=== PATIENT | female | born 1980 | race American Indian/Alaskan Native ===

== ENCOUNTER 2016-11-02 17:13 | Emergency (ER) | payer MEDICAID ==
[2016-11-02 17:27] VITALS: BP 146/97
[2016-11-02] MEDS ORDERED: NORCO 5/325 PO ONE (21:02)
[2016-11-02] MEDS ORDERED: ZOFRAN ODT PO ONE (21:03)
[2016-11-02] MEDS ORDERED: FLEXERIL PO ONE (21:03)
--- NOTE | 2016-11-02 21:04 | Emergency Department Report ---
ED Back Pain/Injury HPI - General Chief Complaint: Back Pain/Injury Stated Complaint: SEVERE BACK PAIN Time Seen by Provider: 11/02/16 20:40 Source: patient, family Limitations: No Limitations - History of Present Illness Initial Comments: Patient here complaining of lower back pain that started in her left side and going across her back. Denies any injury. She said it started this morning while he was making coffee. Denies any urinary burning but report frequency and urgency. Denies any fever or chills or nausea or vomiting. MD Complaint: back pain -: This morning Similar Symptoms Previously: Yes Place: home Radiation: none Severity: severe Severity scale (0 -10): 10 Quality: aching Consistency: constant Improves With: none Worsens With: none Context: unknown Associated Symptoms: denies: confusion, weakness, chest pain, numbness, difficulty walking, cough, difficulty urinating, diaphoresis, incontinence, fever/chills, constipation, headaches, abdominal pain, loss of appetite, malaise , nausea/vomiting, rash, seizure, shortness of breath, syncope Treatments Prior to Arrival: NSAIDS - Related Data Previous Rx's Medication Instructions Recorded Last Taken Type Acetaminophen/Codeine [Tylenol #3] 1 tab PO Q8H PRN #12 tablet 11/02/16 Unknown Rx Nitrofurantoin Laurel/M-Cryst 100 mg PO Q12HR #14 capsule 11/02/16 Unknown Rx [Macrobid CAP] Allergies Allergy/AdvReac Type Severity Reaction Status Date / Time No Known Allergies Allergy Verified 11/30/14 10:43 ED Review of Systems ROS: Stated complaint: SEVERE BACK PAIN Other details as noted in HPI Comment: All other systems reviewed and negative Constitutional: denies: chills, fever Respiratory: no symptoms reported Cardiovascular: denies: chest pain, palpitations, edema, syncope Gastrointestinal: denies: abdominal pain, nausea, vomiting, diarrhea, constipation Genitourinary: urgency, frequency. denies: dysuria, hematuria, discharge Musculoskeletal: back pain. denies: arthralgia Skin: denies: rash Neurological: denies: headache, weakness, numbness, paresthesias, confusion, abnormal gait, vertigo ED Past Medical Hx - Past Medical History Previous Medical History?: No Hx Hypertension: No Hx Diabetes: No Hx Deep Vein Thrombosis: No Hx Renal Disease: No Hx Sickle Cell Disease: No Hx Seizures: No Hx Asthma: No Hx HIV: No - Surgical History Past Surgical History?: No - Family History Family history: no significant - Social History Smoking Status: Never Smoker Substance Use Type: None - Medications Home Medications: Home Medications Medication Instructions Recorded Confirmed Last Taken Type Acetaminophen/Codeine [Tylenol #3] 1 tab PO Q8H PRN #12 tablet 11/02/16 Unknown Rx Nitrofurantoin [place]/M-Cryst 100 mg PO Q12HR #14 capsule 11/02/16 Unknown Rx [Macrobid CAP] ED Physical Exam - General Limitations: No Limitations General appearance: alert, in no apparent distress - Head Head exam: Present: atraumatic, normocephalic, normal inspection - Eye Eye exam: Present: normal appearance, PERRL, EOMI. Absent: periorbital swelling , periorbital tenderness Pupils: Present: normal accommodation - ENT ENT exam: Present: normal exam, normal orophraynx, mucous membranes moist, TM's normal bilaterally, normal external ear exam - Neck Neck exam: Present: normal inspection, full ROM. Absent: tenderness, meningismus, lymphadenopathy - Respiratory Respiratory exam: Present: normal lung sounds bilaterally. Absent: respiratory distress, chest wall tenderness - Cardiovascular Cardiovascular Exam: Present: regular rate, normal rhythm, normal heart sounds - GI/Abdominal GI/Abdominal exam: Present: soft, normal bowel sounds. Absent: distended, tenderness, guarding, rebound, rigid - Extremities Exam Extremities exam: Present: normal inspection, full ROM, normal capillary refill. Absent: tenderness, pedal edema, joint swelling, calf tenderness - Back Exam Back exam: Present: normal inspection, full ROM, tenderness, CVA tenderness (L) . Absent: CVA tenderness (R), muscle spasm, paraspinal tenderness, vertebral tenderness, rash noted - Expanded Back Exam Expanded Back exam: Absent: saddle anesthesia Back exam: Negative Straight Leg Raising: Left, Right - Neurological Exam Neurological exam: Present: alert, oriented X3, normal gait, reflexes normal. Absent: motor sensory deficit - Psychiatric Psychiatric exam: Present: normal affect, normal mood - Skin Skin exam: Present: warm, dry, intact, normal color. Absent: rash ED Course Vital Signs 11/02/16 11/02/16 17:24 21:30 Temperature 97.8 F Pulse Rate 91 H Respiratory 20 20 Rate Blood Pressure 146/97 O2 Sat by Pulse 97 Oximetry - Reevaluation(s) Reevaluation #1: 11/02/16 23:34 Patient pain controlled. ED Medical Decision Making - Radiology Data Radiology results: report reviewed G scan of the abdomen and pelvis reveals gallstones. No cholecystitis or biliary ductal diarrhea patient. There are no kidney stones or hydronephrosis. There are no bowel obstruction, colitis or enteritis. The appendix is normal. There is a 4 cm exophytic uterine fibroid. Ovaries are unremarkable no edema present. - Medical Decision Making ED course: I discussed the patient that she has a bladder infection and will be treated with antibiotic. I Also discussed with her her urine results and her CT scan result. Patient was understanding of discharge instruction and need for follow-up with her primary care physician. Discharged home with prescription for Macrobid and Tylenol 3. Critical care attestation.: If time is entered above; I have spent that time in minutes in the direct care of this critically ill patient, excluding procedure time. ED Disposition Clinical Impression: Acute cystitis with hematuria Back pain Qualifiers: Back pain location: low back pain Chronicity: acute Back pain laterality: left Sciatica presence: without sciatica Qualified Code(s): M54.5 - Low back pain Disposition: DISCHARGED TO HOME OR SELFCARE Is pt being admited?: No Does the pt Need Aspirin: No Condition: Stable Instructions: Urinary Tract Infection in Women (ED), Back Pain (ED) Prescriptions: Acetaminophen/Codeine [Tylenol #3] 1 tab PO Q8H PRN #12 tablet PRN Reason: Pain Nitrofurantoin [place]/M-Cryst [Macrobid CAP] 100 mg PO Q12HR #14 capsule Referrals: [Primary Care Provider] - 2-3 Days Forms: Work/School Release Form(ED)
[2016-11-02 21:48] LABS: Bacteria,Urine 1+ /HPF (Negative); Bilirubin,Urine NEG (Negative); Blood,Urine MOD (Negative); Ketones,Urine NEG (Negative); Leukocyte Esterase,Urine LG (Negative); Mucus,Urine 1+ /HPF; Nitrite,Urine NEG (Negative); Protein,Urine <15 mg/dL mg/dL (Negative); Urobilinogen,Urine < 2.0 mg/dL (<2.0)
--- NOTE | 2016-11-02 22:44 | Cat Scan Report ---
FINAL REPORT PROCEDURE: CT ABDOMEN PELVIS WO CON TECHNIQUE: Computerized axial tomography of the abdomen and pelvis was performed without intravenous contrast. This study is performed without intravascular contrast material and its sensitivity for abdominal and pelvic pathology, including neoplasms, inflammation, abscess, free fluid, thrombosis, arterial dissection and infarction, is reduced compared with a contrast enhanced study. HISTORY: flank pain with hematuria COMPARISON: No prior studies are available for comparison. FINDINGS: Visualized lower thorax: No significant abnormality. Liver: Normal size and attenuation. Spleen: Normal size and attenuation. Gallbladder and biliary system: There are gallstones. There is no cholecystitis or biliary ductal dilatation.. Pancreas: Normal. Adrenals: Normal. Kidneys: There are no kidney stones. There is no hydronephrosis.. GI tract: There is no bowel obstruction, colitis or enteritis. The appendix is normal.. Lymph nodes and mesentery: Normal. Vasculature: Normal. Bladder: Normal. Reproductive organs: There is a 4 centimeter exophytic sub serosal uterine fibroid. The ovaries are unremarkable.. Peritoneum: There is no ascites, free air, abscess or adenopathy.. Musculoskeletal structures: No significant abnormality. Other: None. IMPRESSION: There are gallstones. There is no cholecystitis or biliary ductal dilatation.. There are no kidney stones. There is no hydronephrosis.. There is no bowel obstruction, colitis or enteritis. The appendix is normal.. There is a 4 centimeter exophytic sub serosal uterine fibroid. The ovaries are unremarkable.. There is no ascites, free air, abscess or adenopathy.. .
== END 2016-11-02 23:50 | disposition home or self-care (01) ==
LOC: ED 17:13
DX: N30.01 Acute cystitis with hematuria (principal)
CPT/HCPCS: 74176; 81001; 81025; 99283; Q0162

== ENCOUNTER 2017-08-02 08:07 | Emergency (ER) | payer MEDICAID ==
[2017-08-02 08:50] LABS: Anion Gap 13 mmol/L; BUN/Creatinine Ratio 14; Blood Urea Nitrogen 7 mg/dL (7-17); Calcium 8.3 mg/dL (8.4-10.2); Carbon Dioxide 26 mmol/L (22-30); Glucose 124 mg/dL (65-100); Potassium 4.4 mmol/L (3.6-5.0); Sodium 138 mmol/L (137-145)
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
[2017-08-02 08:51] LABS: Basophils % (Auto) 0.8 % (0.0-1.8); Eosinophils % (Auto) 3.6 % (0.0-4.3); Hematocrit 37.1 % (30.3-42.9); Hemoglobin 11.5 gm/dl (10.1-14.3); Mean Corpuscular HGB Conc 31 % (30-34); Mean Corpuscular Volume 77 fl (79-97); Platelet Count 205 K/mm3 (140-440); Red Blood Count 4.83 M/mm3 (3.65-5.03); Red Cell Distribution Width 14.8 % (13.2-15.2); White Blood Count 3.9 K/mm3 (4.5-11.0)
[2017-08-02 08:55] LABS: Mean Corpuscular Hemoglobin 24 pg (28-32)
--- NOTE | 2017-08-02 09:10 | Emergency Department Report ---
Abscess Boil HPI - HPI Chief Complaint: Skin/Abscess/Foreign Body Stated Complaint: BUMP Time Seen by Provider: 08/02/17 08:47 Duration: >1 Week Location: Head Severity: Mild History: Yes Pain, Yes Previous History, No Fever, No Purulent Drainage, No Numbness, No Foreign Body, No Insect Bite Home Medications: Previous Rx's Medication Instructions Recorded Last Taken Type Cephalexin [Keflex] 500 mg PO Q12HR #20 cap 08/02/17 Unknown Rx Allergies/Adverse Reactions: Allergies Allergy/AdvReac Type Severity Reaction Status Date / Time No Known Allergies Allergy Verified 11/30/14 10:43 ED Review of Systems ROS: Stated complaint: SPIDER BITE/EAR INFECTION Other details as noted in HPI Comment: All other systems reviewed and negative Constitutional: denies: fever, malaise Eyes: denies: eye pain, eye discharge, vision change ENT: denies: ear pain, throat pain, dental pain, hearing loss, epistaxis Respiratory: denies: cough Cardiovascular: denies: chest pain Gastrointestinal: denies: abdominal pain Genitourinary: denies: urgency, dysuria Musculoskeletal: denies: back pain Skin: as per HPI Neurological: denies: headache, weakness Psychiatric: denies: anxiety, depression Hematological/Lymphatic: denies: easy bleeding ED Past Medical Hx - Past Medical History Previous Medical History?: Yes Hx Hypertension: Yes Hx Diabetes: No Hx Deep Vein Thrombosis: No Hx Renal Disease: No Hx Sickle Cell Disease: No Hx Seizures: No Hx Asthma: No Hx HIV: No Additional medical history: Back pain, Vaginal delivery x 1 - Surgical History Past Surgical History?: No - Social History Smoking Status: Never Smoker Substance Use Type: Alcohol, Non Opiate Pain, Prescribed - Medications Home Medications: Home Medications Medication Instructions Recorded Confirmed Last Taken Type Cephalexin [Keflex] 500 mg PO Q12HR #20 cap 08/02/17 Unknown Rx ED Abscess Boil Physical Exam - Exam General: Vital signs noted. No distress. Alert and acting appropriately. SMALL BOIL BEHIND L EAR EAR W BULDGING DRUM NO LYPHADEN ANOTHER LESION IN SCALP; UNDER THICK TWISTED HAIR FLAKES OF DANDRUFF NO FEVER NON TOXIC BP INC NO MEDS OBESE NEURO INTACT NO CN DEF DC HOME W DC POC Size: 1 cm Exam: Yes Tenderness, Yes Normal Neurologic Exam, Yes Normal Circulation, No Fluctuance, No Surrounding Cellulites/Erythema, No Lymphangitis, No Crepitation , No Heart Murmur I & D Note - I & D Note I & D Note: NA ED Course Vital Signs 08/02/17 08:11 Temperature 98.7 F Pulse Rate 108 H Respiratory 18 Rate Blood Pressure 157/93 O2 Sat by Pulse 98 Oximetry Critical care attestation.: If time is entered above; I have spent that time in minutes in the direct care of this critically ill patient, excluding procedure time. ED Medical Decision Making - Lab Data Result diagrams: 08/02/17 08:18 08/02/17 08:18 - Medical Decision Making SEE NOTE - Differential Diagnosis ABCESS V FOLLICULITIS ED Disposition Clinical Impression: Folliculitis Disposition: DC-01 TO HOME OR SELFCARE Is pt being admited?: No Does the pt Need Aspirin: No Condition: Stable Instructions: Folliculitis (ED) Additional Instructions: KEEP HAIR CLEAN AND DRY MED ORDERED FOLLOW UP DERM IF PERSISTS BP A LITTLE ELEVATED TODAY MONITOR AND SEE PCP Referrals: ANABELL PLASENCIA MD [Primary Care Provider] - 3-5 Days OMARI BAZAN MD [Referring] - 3-5 Days Time of Disposition: 09:08
[2017-08-02 09:25] VITALS: BP 140/93
== END 2017-08-02 09:26 | disposition home or self-care (01) ==
LOC: ED 08:07
DX: L73.9 Follicular disorder, unspecified (principal); I10 Essential (primary) hypertension
CPT/HCPCS: 36415; 80048; 85025; 99283

== ENCOUNTER 2017-08-03 16:58 | Emergency (ER) | payer MEDICAID ==
[2017-08-03 17:57] VITALS: BP 137/81
--- NOTE | 2017-08-03 18:00 | Emergency Department Report ---
ED General Adult HPI - General Chief complaint: Skin Rash Stated complaint: EARACHE Time Seen by Provider: 08/03/17 17:49 Source: patient Mode of arrival: Ambulatory Limitations: No Limitations - History of Present Illness Initial comments: PT c/o Stabbing pains to R ear since Thu. PT states she noticed a bump behind her ear and she thought she had a spider bite. PT states she tried everything over the counter. PT states she was seen yesterday and given RX for Keflex but her pain is worse and she has more bumps. PT states she has not seen any spiders or been around anyone sick. MD Complaint: rash -: Gradual, days(s) (6) Location: face Severity scale (0 -10): 8 Quality: constant Improves with: none Worsens with: eating Associated Symptoms: denies other symptoms, headaches, malaise. denies: fever/ chills, nausea/vomiting Treatments Prior to Arrival: NSAID - Related Data Previous Rx's Medication Instructions Recorded Last Taken Type Cephalexin [Keflex] 500 mg PO Q12HR #20 cap 08/02/17 Unknown Rx HYDROcodone/APAP 5-325 [[employer] 1 each PO Q6HR PRN #10 tablet 08/03/17 Unknown Rx 5/325] Valacyclovir HCl [Valtrex] 1,000 mg PO TID #21 tablet 08/03/17 Unknown Rx Allergies Allergy/AdvReac Type Severity Reaction Status Date / Time No Known Allergies Allergy Verified 08/03/17 17:57 ED Review of Systems ROS: Stated complaint: EARACHE Other details as noted in HPI Comment: All other systems reviewed and negative Constitutional: malaise. denies: fever Eyes: denies: eye pain, eye discharge ENT: ear pain. denies: throat pain, congestion Respiratory: denies: cough Cardiovascular: denies: chest pain Skin: rash, lesions. denies: pruritus ED Past Medical Hx - Past Medical History Hx Hypertension: Yes Hx Diabetes: No Hx Deep Vein Thrombosis: No Hx Renal Disease: No Hx Sickle Cell Disease: No Hx Seizures: No Hx Asthma: No Hx HIV: No Additional medical history: Back pain, Vaginal delivery x 1 - Social History Smoking Status: Never Smoker Substance Use Type: Alcohol, Non Opiate Pain, Prescribed - Medications Home Medications: Home Medications Medication Instructions Recorded Confirmed Last Taken Type Cephalexin [Keflex] 500 mg PO Q12HR #20 cap 10/29/17 Unknown Rx HYDROcodone/APAP 5-325 [[employer] 1 each PO Q6HR PRN #10 tablet 08/03/17 Unknown Rx 5/325] Valacyclovir HCl [Valtrex] 1,000 mg PO TID #21 tablet 08/03/17 Unknown Rx ED Physical Exam - General Limitations: No Limitations General appearance: alert, in no apparent distress, obese - Head Head exam: Present: atraumatic, normocephalic, other (Rash noted to R post aruicular area ). Absent: normal inspection - Eye Eye exam: Present: normal appearance, PERRL, EOMI. Absent: conjunctival injection, nystagmus - ENT ENT exam: Present: normal orophraynx, mucous membranes moist - Expanded ENT Exam Expanded TM/Canal exam: Erythema: Right TM (R ear lobe erythema ) Mouth exam: Present: normal external inspection. Absent: drooling, trismus Throat exam: Positive: normal inspection. Negative: tonsillar erythema, tonsillar exudate - Neck Neck exam: Present: tenderness, full ROM, other (rash to R lateral neck ). Absent: normal inspection, lymphadenopathy - Respiratory Respiratory exam: Present: normal lung sounds bilaterally. Absent: respiratory distress, chest wall tenderness - Cardiovascular Cardiovascular Exam: Present: regular rate, normal rhythm, normal heart sounds - GI/Abdominal GI/Abdominal exam: Present: soft. Absent: tenderness - Extremities Exam Extremities exam: Present: normal inspection, full ROM, normal capillary refill - Back Exam Back exam: Present: normal inspection, full ROM, CVA tenderness (L) - Neurological Exam Neurological exam: Present: alert, oriented X3, CN II-XII intact, normal gait - Expanded Neurological Exam Expanded Patient oriented to: Present: person, place, time Speech: Present: fluid speech Best Eye Response (Hamill): (4) open spontaneously Best Motor Response (Kevan): (6) obeys commands Best Verbal Response (Kevan): (5) oriented Hamill Total: 15 - Psychiatric Psychiatric exam: Present: normal affect, normal mood - Skin Skin exam: Present: warm, dry, intact, normal color, rash, erythema, vesicles - Expanded Skin Exam Expanded Type of lesion: Present: rash. Absent: abscess Distribution of rash: head, face Description of rash: Present: erythematous, papular, vesicular, other ( erythematous rash noted from R post arucular area to R lateral neck, small papules and vesicles noted. no facial involvement. no rash near eyes ) ED Course Vital Signs 08/03/17 17:49 Temperature 98.5 F Pulse Rate 93 H Respiratory 16 Rate Blood Pressure 137/81 O2 Sat by Pulse 97 Oximetry - Reevaluation(s) Reevaluation #1: 08/03/17 18:11 PT aware of dx and plan of care. Strict return precautions reviewed. PT aware no driving or ETOH After taking narcotic pain medication. PT aware she is contagious at this time. - Pulse Oximetry Interpretation Digit-Finger Initial Pulse Oximetry Readin Actions Taken: none ED Medical Decision Making - Differential Diagnosis rash, shingles, abscess Critical Care Time: No Critical care attestation.: If time is entered above; I have spent that time in minutes in the direct care of this critically ill patient, excluding procedure time. ED Disposition Clinical Impression: Shingles rash Qualifiers: Herpes zoster complications: without complications Qualified Code(s): B02.9 - Zoster without complications Disposition: - TO HOME OR SELFCARE Is pt being admited?: No Does the pt Need Aspirin: No Condition: Stable Instructions: Herpes Zoster (ED) Additional Instructions: No driving or alcohol after taking [employer] for pain You are contagious, avoid infants and the elderly Follow up with PCP in 2-3 days Return to the ED if your rash worsens or travels towards your R eye Prescriptions: HYDROcodone/APAP 5-325 [[employer] 5/325] 1 each PO Q6HR PRN #10 tablet PRN Reason: Pain Valacyclovir HCl [Valtrex] 1,000 mg PO TID #21 tablet Referrals: UTE FAITH MD [Staff Physician] - 3-5 Days [facility] [Outside] - 3-5 Days Time of Disposition: 18:14
== END 2017-08-03 19:04 | disposition home or self-care (01) ==
LOC: ED 16:58
DX: B02.9 Zoster without complications (principal); I10 Essential (primary) hypertension
CPT/HCPCS: 99281